=== PATIENT | female | born 1980 | race American Indian/Alaskan Native ===

== ENCOUNTER 2020-10-20 15:55 | Emergency (ER) | payer BC, OTHER ==
--- NOTE | 2020-10-20 16:22 | Event Note ---
ED Screening Note Date of service: 10/20/20 Time: 16:21 ED Screening Note: This 40-year-old female presents with lower pelvic pain and back pain that began yesterday and got worse today. She admits nausea but denies vomiting or diarrhea. States history of fibroids This initial assessment/diagnostic orders/clinical plan/treatment(s) is/are subject to change based on patients health status, clinical progression and re- assessment by fellow clinical providers in the ED. Further treatment and workup at subsequent clinical providers discretion. Patient/guardian urged not to elope from the ED as their condition may be serious if not clinically assessed and managed. Initial orders include: CBC, CMP, UA UPT
[2020-10-20 16:25] VITALS: BP 115/68
[2020-10-20 16:45] LABS: Basophils % (Auto) 0.4 % (0.0-1.8); Eosinophils % (Auto) 0.8 % (0.0-4.3); Hematocrit 34.3 % (30.3-42.9); Hemoglobin 11.4 gm/dl (10.1-14.3); Lymphocytes # (Auto) 2.8 K/mm3 (1.2-5.4); Lymphocytes % (Auto) 42.6 % (13.4-35.0); Mean Corpuscular HGB Conc 33 % (30-34); Mean Corpuscular Volume 87 fl (79-97); Monocytes # (Auto) 0.6 K/mm3 (0.0-0.8); Monocytes % (Auto) 9.6 % (0.0-7.3); Platelet Count 271 K/mm3 (140-440); Red Blood Count 3.94 M/mm3 (3.65-5.03); Red Cell Distribution Width 17.8 % (13.2-15.2)
[2020-10-20 16:45] LABS: Bilirubin,Urine NEG (Negative); Blood,Urine LG (Negative); Color,Urine Yellow (Yellow); Urobilinogen,Urine < 2.0 mg/dL (<2.0)
[2020-10-20 16:47] LABS: RBC,Urine > 182.0 /HPF (0.0-6.0)
[2020-10-20 17:07] LABS: Alanine Aminotransferase 11 units/L (7-56); Albumin 3.9 g/dL (3.9-5); Blood Urea Nitrogen 14 mg/dL (7-17); Calcium 8.3 mg/dL (8.4-10.2); Hemolysis Index 4
[2020-10-20 17:18] LABS: BUN/Creatinine Ratio 28
[2020-10-20] MEDS ORDERED: KETOROLAC 30 MG/1 ML INJ IV ONE (18:44)
[2020-10-20] MEDS ORDERED: SODIUM CHLORIDE 0.9% 1000 ML 1,000 ML IV ONE (18:46)
[2020-10-20] MEDS ORDERED: ONDANSETRON 4 MG/2 ML INJ IV ONE (18:47)
--- NOTE | 2020-10-20 20:57 | Ultrasound Report ---
ULTRASOUND PELVIS INDICATION: Pelvic pain and tenderness. TECHNIQUE: Transabdominal and Transvaginal. Duplex Color Doppler used: Yes. COMPARISON: None available FINDINGS: Uterus: Present. Size: 12.8 x 5.5 x 7.7 cm. Endometrial complex: Normal measuring 0.9 cm. Mass lesions: Multiple probable fibroids are seen with the largest located inferiorly/to the left of midline along the uterine body measuring 4.4 x 4.0 x 3.9 cm. Additional findings: None. Right Ovary: Size: 3.1 x 1.9 x 2.4 cm Blood flow: Normal. Cyst or mass: None. Left Ovary: Size: 3.4 x 1.5 x 2.1 cm Blood flow: Normal. Cyst or mass: None. Urinary Bladder: Normal. Free Fluid: None. Additional Findings: None. IMPRESSION: Multiple probable uterine fibroids as above. Signer Name: Jeramie Rocha MD Signed: 10/20/2020 8:52 PM Workstation Name: [id number]
--- NOTE | 2020-10-20 22:35 | Emergency Department Report ---
ED Female HPI - General Chief complaint: Abdominal Pain Stated complaint: ABD PAIN Time Seen by Provider: 10/20/20 19:26 Source: patient Mode of arrival: Ambulatory Limitations: No Limitations - History of Present Illness MD Complaint: pelvic pain -: Gradual Location: suprapubic Radiation: non-radiating Severity: mild, moderate Quality: dull Consistency: constant Improves with: none Worsens with: none Are you Now?: No Associated Symptoms: vaginal bleeding, abdominal pain. denies: vaginal d ischarge, nausea/vomiting, loss of appetite, dysuria, hematuria, rash, syncope, weakness - Related Data Sexually active: Yes Previous Rx's Medication Instructions Recorded Last Taken Type Ibuprofen [Motrin] 800 mg PO TID PRN #20 tablet 11/19/13 Unknown Rx Cyclobenzaprine [Flexeril] 10 mg PO TID PRN #20 tablet 09/24/15 Unknown Rx HYDROcodone/APAP 5-325 [Blair 1 each PO Q6HR PRN #10 tablet 09/24/15 Unknown Rx 5-325 mg TAB] Ibuprofen [Motrin 800 MG tab] 800 mg PO Q8HR PRN #30 tablet 09/24/15 Unknown Rx Ketorolac [Toradol] 10 mg PO Q6H PRN #20 tablet 10/20/20 Unknown Rx Allergies Allergy/AdvReac Type Severity Reaction Status Date / Time No Known Allergies Allergy Verified 10/20/20 16:20 ED Review of Systems ROS: Stated complaint: ABD PAIN Other details as noted in HPI Comment: All other systems reviewed and negative ED Past Medical Hx - Past Medical History Previous Medical History?: Yes Additional medical history: FIBROIDS - Surgical History Additional Surgical History: 3 c-sections - Social History Smoking Status: Never Smoker Substance Use Type: None - Medications Home Medications: Home Medications Medication Instructions Recorded Confirmed Last Taken Type Ibuprofen [Motrin] 800 mg PO TID PRN #20 tablet 11/19/13 Unknown Rx Cyclobenzaprine [Flexeril] 10 mg PO TID PRN #20 tablet 09/24/15 Unknown Rx HYDROcodone/APAP 5-325 [Blair 1 each PO Q6HR PRN #10 tablet 09/24/15 Unknown Rx 5-325 mg TAB] Ibuprofen [Motrin 800 MG tab] 800 mg PO Q8HR PRN #30 tablet 09/24/15 Unknown Rx Ketorolac [Toradol] 10 mg PO Q6H PRN #20 tablet 10/20/20 Unknown Rx ED Physical Exam - General Limitations: No Limitations General appearance: alert, in no apparent distress - Head Head exam: Present: atraumatic, normocephalic - Eye Eye exam: Present: normal appearance, PERRL, EOMI Pupils: Present: normal accommodation - ENT ENT exam: Present: mucous membranes moist - Neck Neck exam: Present: normal inspection - Respiratory Respiratory exam: Present: normal lung sounds bilaterally. Absent: respiratory distress - Cardiovascular Cardiovascular Exam: Present: regular rate, normal rhythm. Absent: systolic murmur, diastolic murmur, rubs, gallop - GI/Abdominal GI/Abdominal exam: Present: soft, tenderness (Suprapubic region with palpation. No CVA tenderness. ), normal bowel sounds. Absent: hyperactive bowel sounds, hypoactive bowel sounds - Extremities Exam Extremities exam: Present: normal inspection, normal capillary refill - Back Exam Back exam: Present: normal inspection. Absent: CVA tenderness (R), CVA tenderness (L), paraspinal tenderness, vertebral tenderness - Neurological Exam Neurological exam: Present: alert, oriented X3, CN II-XII intact, normal gait. Absent: motor sensory deficit - Psychiatric Psychiatric exam: Present: normal affect, normal mood. Absent: anxious, flat affect, manic, suicidal ideation - Skin Skin exam: Present: warm, dry, intact, normal color. Absent: rash, cyanosis, diaphoretic, urticaria, petechiae, pallor, abrasion ED Course Vital Signs 10/20/20 16:23 Temperature 98.9 F Pulse Rate 79 Respiratory 20 Rate Blood Pressure 115/68 O2 Sat by Pulse 100 Oximetry ED Medical Decision Making - Lab Data Result diagrams: 10/20/20 16:35 10/20/20 16:35 - Radiology Data Radiology results: report reviewed [facility] [address] [place] [address] Ultrasound Report Signed Patient: BETTY ESCOTO MR#: [id number] : 1980 Acct:[id number] Age/Sex: 40 / F ADM Date: 10/20/20 Loc: ED Attending Dr: Ordering Physician: DERRICK MCGILL Date of Service: 10/20/20 Procedure(s): US transvaginal Accession Number(s): [id number] cc: DERRICK MCGILL ULTRASOUND PELVIS INDICATION: Pelvic pain and tenderness. TECHNIQUE: Transabdominal and Transvaginal. Duplex Color Doppler used: Yes. COMPARISON: None available FINDINGS: Uterus: Present. Size: 12.8 x 5.5 x 7.7 cm. Endometrial complex: Normal measuring 0.9 cm. Mass lesions: Multiple probable fibroids are seen with the largest located inferiorly/to the left of midline along the uterine body measuring 4.4 x 4.0 x 3.9 cm. Additional findings: None. Right Ovary: Size: 3.1 x 1.9 x 2.4 cm Blood flow: Normal. Cyst or mass: None. Left Ovary: Size: 3.4 x 1.5 x 2.1 cm Blood flow: Normal. Cyst or mass: None. Urinary Bladder: Normal. Free Fluid: None. Additional Findings: None. IMPRESSION: Multiple probable uterine fibroids as above. Signer Name: Jeramie Rocha MD Signed: 10/20/2020 8:52 PM Workstation Name: [id number] Transcribed By: DILIP Dictated By: Jeramie Rocha MD Electronically Authenticated By: Jeramie Rocha MD Signed Date/Time: 10/20/202051 DD/ 49 TD/TT: - Medical Decision Making 40-year-old -Martiniquais female presents emergency department complaining of pelvic pain for the last day associated with her menstrual cycle and nausea has improved and reports having some uterine fibroids but thinks it may be something different. The ultrasound does confirm uterine fibroid no other pathology her labs were relatively benign. I have a very low suspicion for appendicitis, ischemic bowel, bowel perforation, or any other life threatening disease. I have discussed with the patient the level of uncertainty with undifferentiated abdominal pain and clearly explained the need to follow-up as noted on the discharge instructions, or return to the Emergency Department immediately if the pain worsens, develops fever, persistent and uncontrollable vomiting, or for any new symptoms or concerns. Critical care attestation.: If time is entered above; I have spent that time in minutes in the direct care of this critically ill patient, excluding procedure time. ED Disposition Clinical Impression: Fibroid, uterine Disposition: DC- TO HOME OR SELFCARE Is pt being admited?: No Does the pt Need Aspirin: No Condition: Stable Instructions: Abdominal Pain (ED), Uterine Artery Embolization for Fibroids, Uterine Fibroids, Uterine Artery Embolization for Fibroids, Care After Prescriptions: Ketorolac [Toradol] 10 mg PO Q6H PRN #20 tablet PRN Reason: Pain Referrals: [facility] [Primary Care Provider] - 3-[address] [facility] [Provider Group] - 3-5 Days [facility] [Provider Group] - 3-5 Days
== END 2020-10-20 22:40 | disposition home or self-care (01) ==
LOC: ED 15:55
DX: D25.9 Leiomyoma of uterus, unspecified (principal); N93.9 Abnormal uterine and vaginal bleeding, unspecified; Z98.890 Other specified postprocedural states; Z79.899 Other long term (current) drug therapy
CPT/HCPCS: 36415; 76830; 76856; 80053; 81001; 84703; 85025; 87086; 96361; 96374; 96375; 99284; J1885; J2405; J7030